=== PATIENT | female | born 1985 | race Caucasian/White ===

== ENCOUNTER → 2025-01-01 | Outpatient (CLI) | payer OTHER ==
[2025-01-01 10:01] LABS: BASOPHIL # 0.0 10^3/uL (0.0-0.1); BASOPHIL % 0.8 % (0.1-1.2); EOSINOPHIL # 0.1 10^3/uL (0.0-0.2); EOSINOPHIL % 1.1 % (0.0-5.0); HEMATOCRIT(ML) 42.5 % (36.0-46.0); IG % 0.00 % (0.00-0.50); LYMPHOCYTES # 1.45 10^3/uL1 (1.0-4.8); LYMPHOCYTES % 27.3 % (24.0-44.0); MEAN CORP HGB 29.8 pg (26-34); MEAN CORP HGB CONCENTRATION 34.1 g/dL (33-36.5); MEAN CORP VOLUME 87.4 fL (78-100); MONOCYTES # 0.6 10^3/uL (0.3-0.8); MONOCYTES % 10.4 % (5.0-12.0); NEUTROPHIL # 3.2 10^3/uL (1.8-7.7); NEUTROPHILS % 60.4 % (41.0-85.0); RED BLOOD CELL 4.86 10^6/uL (4.00-5.20); RED CELL DISTRIBUTION WIDTH 14.0 % (11.5-14.5); WHITE BLOOD CELL 5.3 10^3/uL (4.5-11.0)
[2025-01-01 10:29] LABS: ALANINE AMINOTRANSFERASE(ML) 36 U/L (12-78); ALBUMIN(ML) 4.1 g/dL (3.4-5.0); CREATININE SERUM 0.98 mg/dL (0.59-1.40); EST GFR, NON-AA 62.9 (>/=60)
[2025-01-02 11:18] LABS: THYROGLOBULIN ANTIBODY <1.0 IU/mL (0.0-0.9)
[2025-01-02 12:19] LABS: THYROID PEROXIDASE (TPO) AB 322 IU/mL (0-34)
== END | disposition home or self-care (01) ==
LOC: LAB 09:12
PROVIDERS: ATTEND Nurse Practitioner Family
DX: R22.2 Localized swelling, mass and lump, trunk (principal); R10.32 Left lower quadrant pain
CPT/HCPCS: 36415; 74018; 80053; 83735; 84439; 84443; 85025; 85651; 86140; 86376; 86800

== ENCOUNTER → 2025-01-07 | Outpatient (CLI) | payer OTHER | END | disposition home or self-care (01) | LOC: RAD 10:06 | PROVIDERS: ATTEND Nurse Practitioner Family | DX: K57.41 Diverticulitis of both small and large intestine with perforation and abscess with bleeding (principal); N83.202 Unspecified ovarian cyst, left side; N83.01 Follicular cyst of right ovary; N85.2 Hypertrophy of uterus; N28.1 Cyst of kidney, acquired; K76.89 Other specified diseases of liver; R22.2 Localized swelling, mass and lump, trunk; R10.32 Left lower quadrant pain | CPT/HCPCS: 74177; 76705; Q9967; Q9965 ==

== ENCOUNTER → 2025-01-21 | Outpatient (CLI) | payer OTHER | END | disposition home or self-care (01) | LOC: RAD 13:33 | PROVIDERS: ATTEND Nurse Practitioner Family | DX: R10.32 Left lower quadrant pain (principal); N83.201 Unspecified ovarian cyst, right side | CPT/HCPCS: 76830; 76856 ==